=== PATIENT | male | born 1995 | race Asian ===

== ENCOUNTER 2020-05-08 08:43 | Emergency (ER) | payer OTHER ==
[~2020-05-08] VITALS: Ht 183.5 cm; Wt 90.9 kg
[2020-05-08 08:45] VITALS: BP 145/74
[2020-05-08] MEDS ORDERED: ASCO500 PO (08:47)
[2020-05-08] MEDS ORDERED: PERTUSS(ACELL),DIPH,TET VAC/PF 0.5 ML VIAL IM ONE (09:15)
== END 2020-05-08 09:30 | disposition home or self-care (01) ==
LOC: EMS 08:50
DX: S61.031A Puncture wound without foreign body of right thumb without damage to nail, initial encounter (principal); W46.1XXA Contact with contaminated hypodermic needle, initial encounter; Y93.89 Activity, other specified; Y92.89 Other specified places as the place of occurrence of the external cause; Y99.0 Civilian activity done for income or pay
CPT/HCPCS: 84460; 86706; 86803; 87340; 90471; 90715